=== PATIENT | female | born 1995 | race American Indian/Alaskan Native ===

== ENCOUNTER 2019-01-08 15:57 | Emergency (ER) | payer BC, MEDICAID ==
[2019-01-08] MEDS ORDERED: Phenazopyridine 95 MG Tab PO ONE (16:53)
[2019-01-08] MEDS ORDERED: Ciprofloxacin 500 MG Tab PO ONE (16:53)
--- NOTE | 2019-01-08 17:02 | EDM.PDOC ---
ED HPI GENERAL MEDICAL PROBLEM - General Chief Complaint: Genitourinary Problem Stated Complaint: UTI? HURTS TO PEE PAIN ABOVE KIDNEYS Time Seen by Provider: 01/08/19 16:45 Source of Information: Reports: Patient History Limitations: Reports: No Limitations - History of Present Illness INITIAL COMMENTS - FREE TEXT/NARRATIVE: This 23 yo female patient reports to the ED with a 2 day history of urinary urgency and pain. The patient reports here symptoms have gotten worse over the past 24 hours. The patient reports she has also noticed blood in her urine. Onset Date: 01/07/19 Duration: Constant Location: Reports: Abdomen Quality: Reports: Ache, Sharp Severity: Moderate Improves with: Reports: None Worsens with: Reports: None Context: Reports: Other Associated Symptoms: Reports: No Other Symptoms Perineal Area Pain Score (Numeric/FACES): 10 - Related Data Allergies Allergy/AdvReac Type Severity Reaction Status Date / Time acetaminophen Allergy Cannot Verified 01/08/19 16:20 [From Tylenol-Codeine #3] Remember codeine Allergy Cannot Verified 01/08/19 16:20 [From Tylenol-Codeine #3] Remember escitalopram [From Lexapro] Allergy Cannot Verified 01/08/19 16:20 Remember Home Meds: Home Meds Gabapentin [Neurontin] 600 mg PO BID 01/08/19 [History] Multivit,Calc,Mins/Iron/Folic [Therapeutic-M Tablet] 1 each PO DAILY 01/08/19 [ History] Past Medical History Genitourinary History: Reports: UTI, Recurrent Neurological History: Reports: Neuropathy, Peripheral Psychiatric History: Reports: Depression Social & Family History - Family History Family Medical History: Noncontributory - Tobacco Use Smoking Status *Q: Never Smoker Second Hand Smoke Exposure: No - Caffeine Use Caffeine Use: Reports: Coffee, Energy Drinks, Soda, Tea - Recreational Drug Use Recreational Drug Use: No ED ROS GENERAL - Review of Systems Review Of Systems: ROS reveals no pertinent complaints other than HPI. ED EXAM, RENAL/ - Physical Exam Exam: See Below Exam Limited By: No Limitations General Appearance: Alert, WD/WN, No Apparent Distress Eye Exam: Bilateral Eye: EOMI, Normal Inspection, PERRL Ears: Normal External Exam, Normal Canal, Hearing Grossly Normal, Normal TMs Nose: Normal Inspection, Normal Mucosa, No Blood Throat/Mouth: Normal Inspection, Normal Lips, Normal Teeth, Normal Gums, Normal Oropharynx, Normal Voice, No Airway Compromise Head: Atraumatic, Normocephalic Neck: Normal Inspection, Supple, Non-Tender, Full Range of Motion Respiratory/Chest: No Respiratory Distress, Lungs Clear, Normal Breath Sounds, No Accessory Muscle Use, Chest Non-Tender Cardiovascular: Normal Peripheral Pulses, Regular Rate, Rhythm, No Edema, No Gallop, No JVD, No Murmur, No Rub GI/Abdominal: Normal Bowel Sounds, Tender (lower abdomen) (Female) Exam: Deferred Rectal (Female) Exam: Deferred Back Exam: Normal Inspection, Full Range of Motion, NT Neurological: Alert, Oriented, CN II-XII Intact, Normal Cognition, Normal Gait, Normal Reflexes, No Motor/Sensory Deficits Psychiatric: Normal Affect, Normal Mood Skin Exam: Warm, Dry, Intact, Normal Color, No Rash Lymphatic: No Adenopathy Course - Vital Signs Last Recorded V/S: Last Vital Signs Temp 37.0 C 01/08/19 16:20 Pulse 99 01/08/19 16:20 Resp 16 01/08/19 16:20 BP 130/69 01/08/19 16:20 Pulse Ox 100 01/08/19 16:20 - Orders/Labs/Meds Orders: Active Orders 24 hr Category Date Time Status CULTURE URINE [RM] Stat Lab 01/08/19 16:15 Received Labs: Laboratory Tests 01/08/19 01/08/19 01/08/19 Range/Units 16:15 16:15 16:15 Urine Color Yellow (YELLOW) Urine Appearance Slightly cloudy (CLEAR) Urine pH 5.5 (5.0-9.0) Ur Specific [place] >= 1.030 (1.005-1.030) Urine Protein 100 H (NEGATIVE) Urine Glucose (UA) Negative (NEGATIVE) Urine Ketones Negative (NEGATIVE) Urine Occult Blood Large H (NEGATIVE) Urine Nitrite Positive H (NEGATIVE) Urine Bilirubin Negative (NEGATIVE) Urine Urobilinogen 1.0 (0.2-1.0) mg/dL Ur Leukocyte Esterase Small H (NEGATIVE) Urine RBC 75-100 H /HPF Urine WBC 5-10 H (0-5/HPF) /HPF Ur Epithelial Cells Moderate H (NOT SEEN) /HPF Urine Bacteria Moderate H (0-FEW/HPF) /HPF Urine Mucus Few H (NOT SEEN) /LPF Urine HCG, Qual Negative Urine Opiates Screen Negative (NEGATIVE) Ur Oxycodone Screen Negative (NEGATIVE) Urine Methadone Screen Negative (NEGATIVE) Ur Barbiturates Screen Negative (NEGATIVE) U Tricyclic Antidepress Negative (NEGATIVE) Ur Phencyclidine Scrn Negative (NEGATIVE) Ur Amphetamine Screen Negative (NEGATIVE) U Methamphetamines Scrn Negative (NEGATIVE) Urine MDMA Screen Negative (NEGATIVE) U Benzodiazepines Scrn Negative (NEGATIVE) Urine Cocaine Screen Negative (NEGATIVE) U Marijuana (THC) Screen Positive H (NEGATIVE) Meds: Medications Discontinued Medications Generic Name Dose Route Start Last Admin Trade Name Ashley PRN Reason Stop Dose Admin Ciprofloxacin 500 mg 01/08/19 16:53 Ciprofloxacin Hcl PO 01/08/19 16:54 ONETIME ONE Phenazopyridine HCl 190 mg 01/08/19 16:53 Urinary Pain Relief PO 01/08/19 16:54 ONETIME ONE Departure - Departure Time of Disposition: 16:59 Disposition: Home, Self-Care 01 Condition: Fair Clinical Impression: UTI, Urinary tract infectious disease - Discharge Information Instructions: Urinary Tract Infection, Adult, [id number] Care Plan Goals: The patient was advised of the examination and lab results during the visit. The patient was given an oral dose of Cipro (500 mg) and an oral dose of Pyridium (190 mg) while in the emergency department. The patient was discharged with a script for Cipro (500 mg) #6 to take 1 by mouth 2 times per day for 3 days and Pyridium (200 mg) #6 to take 1 by mouth 3 times per day for 2 days. The patient was encouraged to increase her oral fluid intake. If the patient has any additional symptoms or concerns, the patient should either return to the emergency department or visit her primary care facility. - My Orders Last 24 Hours: My Active Orders 01/08/19 16:15 CULTURE URINE [RM] Stat - Assessment/Plan Last 24 Hours: My Active Orders 01/08/19 16:15 CULTURE URINE [RM] Stat
== END 2019-01-08 17:24 | disposition home or self-care (01) ==
LOC: DL.ED 15:57
DX: N39.0 Urinary tract infection, site not specified (principal); Z88.8 Allergy status to other drugs, medicaments and biological substances; Z88.5 Allergy status to narcotic agent; Z79.899 Other long term (current) drug therapy
CPT/HCPCS: 80305; 81001; 81025; 87086; 87088; 87186; 99283; A9270